=== PATIENT | male | born 1980 | race Caucasian/White ===

== ENCOUNTER 2017-06-19 01:22 | Emergency (ER) | payer SELFPAY ==
[~2017-06-19] VITALS: Ht 175.3 cm; Wt 73.6 kg
--- NOTE | 2017-06-19 01:30 | ED.ADGEN ---
Past History Past Medical History: Other Smoking: Cigarettes Drug Use: Amphetamine, Marijuana Adult General Chief Complaint Chief Complaint " The police woke me up...and said I could go here or [facility]..." " I was just sleeping.." HPI HPI Patient is a 36 year old male who presents with reported mental status changes. Pt. a police referral for mental status changes. Pt denies alcohol use. Pt does admit to doing "smoke." Pt. hx of alcohol abuse and polysubstance abuse in the past. Pt. request a meal. Pt. dose not remember his last meal. Denies immunosuppression. Denies any hx of trauma or recent travel. Pt. only complaints is he needs somewhere to sleep and something to eat. Review of Systems Review of Systems Constitutional: Denies fever or chills [] Eyes: Denies change in visual acuity, redness, or eye pain [] HENT: Denies nasal congestion or sore throat [] Respiratory: Denies cough or shortness of breath [] Cardiovascular: No additional information not addressed in HPI [] GI: Denies abdominal pain, nausea, vomiting, bloody stools or diarrhea [] : Denies dysuria or hematuria [] Musculoskeletal: Denies back pain or joint pain [] Integument: Denies rash or skin lesions [] Neurologic: Denies headache, focal weakness or sensory changes [] Endocrine: Denies polyuria or polydipsia [] All other systems were reviewed and found to be within normal limits, except as documented in this note. Family History Family History Non-contributory Current Medications Current Medications Current Medications Medications (Trade) Dose Ordered Sig/Wale Start Time Stop Time Status Last Admin Dose Admin Folic Acid (FOLIC ACID SYRINGE for ER) 5 mg STK-MED ONCE 06/19/17 02:03 06/19/17 02:04 DC Multivitamins/ Minerals 10 ml/ Folic Acid 1 mg/ Thiamine HCl 100 mg/Lactated Ringer's 1,011.1 ml @ 1,000 mls/ hr 1X ONCE 06/19/17 02:15 06/19/17 03:15 DC 06/19/17 02:16 1,000 MLS/HR Potassium Chloride (KCl Oral Soln) 40 meq 1X ONCE 06/19/17 03:00 06/19/17 03:56 DC 06/19/17 03:04 40 MEQ Thiamine HCl 200 mg STK-MED ONCE 06/19/17 02:03 06/19/17 02:04 DC Allergies Allergies Allergies Coded Allergies Type Severity Reaction Last Updated Verified No Known Drug Allergies 06/19/17 No Physical Exam Physical Exam Constitutional: no acute distress, non-toxic appearance. [] HENT: Normocephalic, atraumatic, bilateral external ears normal, oropharynx moist, no oral exudates, nose normal. [] Eyes: PERRLA, EOMI, conjunctiva normal, no discharge. [] Neck: Normal range of motion, no tenderness, supple, no stridor. [] Cardiovascular:Heart rate regular rhythm, no murmur [] Lungs & Thorax: Bilateral breath sounds equal with scattered wheezes on auscultation []no obvious trauma Abdomen: Bowel sounds normal, soft, no tenderness, no masses, no pulsatile masses. [] Circumcised male Skin: Warm, dry, no erythema, no rash. Body totally covered with tattoo's Back: No tenderness, no CVA tenderness. [] Extremities: No tenderness, no cyanosis, no clubbing, ROM intact, no edema. [] Neurologic: Alert and oriented X 3, normal motor function, normal sensory function, no focal deficits noted. []DTRs +2 patella and brachial. Ripening Room Operator equal. Patient ambulatory without problems. Psychologic: Affect uncooperative, judgement normal, mood normal. [] Current Patient Data Vital Signs Vital Signs Date Time Temp Pulse Resp B/P (MAP) Pulse Ox O2 Delivery O2 Flow Rate FiO2 06/19/17 01:22 97.9 77 16 100 Room Air Lab Results Laboratory Tests Test 06/19/17 01:22 06/19/17 01:40 06/19/17 01:48 Urine Collection Type Unknown Urine Color Yellow Urine Clarity Clear Urine pH 6.5 Urine Specific [place] <=1.005 Urine Protein Neg (NEG-TRACE) Urine Glucose (UA) Neg mg/dL (NEG) Urine Ketones (Stick) Neg mg/dL (NEG) Urine Blood Neg (NEG) Urine Nitrite Neg (NEG) Urine Bilirubin Neg (NEG) Urine Urobilinogen Dipstick 0.2 mg/dL (0.2 mg/dL) Urine Leukocyte Esterase Neg (NEG) Urine RBC 0 /HPF (0-2) Urine WBC Occ /HPF (0-4) Urine Squamous Epithelial Cells Occ /LPF Urine Bacteria 0 /HPF (0-FEW) Urine Opiates Screen Neg (NEG) Urine Methadone Screen Pos (NEG) Urine Barbiturates Neg (NEG) Urine Phencyclidine Screen Neg (NEG) Urine Amphetamine/Methamphetamine Pos (NEG) Urine Benzodiazepines Screen Neg (NEG) Urine Cocaine Screen Neg (NEG) Urine Cannabinoids Screen Pos (NEG) Urine Ethyl Alcohol (NEG) White Blood Count 9.0 x10^3/uL (4.0-11.0) Red Blood Count 4.35 x10^6/uL (4.30-5.70) Hemoglobin 14.1 g/dL (13.0-17.5) Hematocrit 40.4 % (39.0-53.0) Mean Corpuscular Volume 93 fL (79-100) Mean Corpuscular Hemoglobin 32 pg (25-35) Mean Corpuscular Hemoglobin Concent 35 g/dL (31-37) Red Cell Distribution Width 12.6 % (11.5-14.5) Platelet Count 221 x10^3/uL (140-400) Neutrophils (%) (Auto) 67 % (31-73) Lymphocytes (%) (Auto) 21 % (24-48) L Monocytes (%) (Auto) 9 % (0-9) Eosinophils (%) (Auto) 3 % (0-3) Basophils (%) (Auto) 0 % (0-3) Neutrophils # (Auto) 6.0 x10^3uL (1.8-7.7) Lymphocytes # (Auto) 1.9 x10^3/uL (1.0-4.8) Monocytes # (Auto) 0.8 x10^3/uL (0.0-1.1) Eosinophils # (Auto) 0.2 x10^3/uL (0.0-0.7) Basophils # (Auto) 0.0 x10^3/uL (0.0-0.2) POC Hemoglobin 13.3 gm/dL POC Hematocrit 39 % POC Sodium 138 mmol/L (135-145) POC Potassium 3.1 mmol/L (3.5-5.0) L POC Chloride 95 mmol/L (98-110) L POC Total CO2 31 mmol/L (23-32) Anion Gap 16 mmol/L (6-14) H POC Blood Urea Nitrogen 4 mg/dL (8-26) L POC Creatinine 0.9 mg/dL (0.5-1.4) Glucose Level 106 mg/dL (60-99) H POC Ionized Calcium (Simone) 1.11 mmol/L (1.13-1.32) L EKG EKG I interpretation EKG shows a sinus rhythm at 74 bpm. Thyroid prolonged QT interval. No findings acute STEMI of contralateral changes[] Radiology/Procedures Radiology/Procedures My interpretation of chest x-ray shows no acute cardiopulmonary findings. Does have appears to be a metal foreign body right chest-[] Course & Med Decision Making Course & Med Decision Making Pertinent Labs and Imaging studies reviewed. (See chart for details). Pt. only complaint is that he needs a place to sleep and something to eat. Pt discharge home, advised to stop illicit drug use, push fruit juices. Stop smoking. [] Final Impression Final Impression 1. Police referral for mental status change 2.[History of polysubstance abuse-+ Methadone, MJ and Meth. tonight. 3. Hypokalemia Problems: Dragon Disclaimer Dragon Disclaimer This electronic medical record was generated, in whole or in part, using a voice recognition dictation system. LION BELTRAN MD June 19, 2017 01:30
--- NOTE | 2017-06-19 01:42 | EKG ---
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
[2017-06-19] MEDS ORDERED: FOLIC ACID 5 MG/ML SYRINGE for ER IV ONE (02:03)
[2017-06-19] MEDS ORDERED: THIAMINE 200 MG/2 ML VIAL. IV ONE (02:03)
[2017-06-19 02:11] LABS: BASO % 0 % (0-3); EOS # 0.2 x10^3/uL (0.0-0.7); EOS % 3 % (0-3); HEMATOCRIT 40.4 % (39.0-53.0); HEMOGLOBIN 14.1 g/dL (13.0-17.5); LYMPH # 1.9 x10^3/uL (1.0-4.8); LYMPH % 21 % (24-48); MEAN CORPUSCULAR HEMOGLOBIN 32 pg (25-35); MEAN CORPUSCULAR HGB CONC 35 g/dL (31-37); MEAN CORPUSCULAR VOLUME 93 fL (79-100); MONO # 0.8 x10^3/uL (0.0-1.1); MONO % 9 % (0-9); NEUT % 67 % (31-73); PLATELET COUNT 221 x10^3/uL (140-400); RED BLOOD COUNT 4.35 x10^6/uL (4.30-5.70); RED CELL DISTRIBUTION WIDTH 12.6 % (11.5-14.5)
[2017-06-19] MEDS ORDERED: MVI, ADULT NO.4 WITH VIT K 10 ML, FOLIC ACID SYRINGE for ER 1 MG, THIAMINE 100 MG in IV... IV ONE ×4 (02:15)
[2017-06-19 02:22] LABS: BILIRUBIN,URINE NEG (NEG); CLARITY,URINE CLEAR; COLOR,URINE YELLOW; GLUCOSE,URINE NEG (NEG); UROBILINOGEN,URINE 0.2 mg/dL (0.2 mg/dL)
[2017-06-19 02:23] LABS: BACTERIA,URINE 0 /HPF (0-FEW); NITRITE,URINE NEG (NEG); RBC,URINE 0 /HPF (0-2); SQUAMOUS EPITHELIAL CELL,UR OCC /LPF; WBC,URINE OCC /HPF (0-4)
[2017-06-19 02:31] LABS: HEMOGLOBIN ISTAT 13.3 gm/dL; POTASSIUM ISTAT 3.1 mmol/L (3.5-5.0)
[2017-06-19] MEDS ORDERED: POTASSIUM CHLORIDE 20 MEQ/15 ML ORAL LIQUID. PO ONE (03:00)
[2017-06-19 03:59] LABS: AMPHETAMINE/METHAMPHETAMINE POS (NEG); BARBITURATES NEG (NEG); BENZODIAZEPINES NEG (NEG); COCAINE NEG (NEG)
[2017-06-19 04:00] LABS: CANNABINOIDS POS (NEG); METHADONE POS (NEG); OPIATES NEG (NEG); PHENCYCLIDINE NEG (NEG)
[2017-06-19 04:18] VITALS: BP 95/51
--- NOTE | 2017-06-19 09:42 | RAD ---
EXAM: Chest, single view. HISTORY: Dyspnea. COMPARISON: None. FINDINGS: A frontal view of the chest is obtained. There is no infiltrate, effusion or pneumothorax. The heart is normal in size. There is a metallic BB overlying the right mediastinum. IMPRESSION: No acute pulmonary finding. Electronically signed by: Noa Pickering MD (06/19/2017 9:39 AM) [id number]
== END 2017-06-19 04:35 | disposition home or self-care (01) ==
LOC: ER 01:22
DX: R41.82 Altered mental status, unspecified (principal); E87.6 Hypokalemia; F12.10 Cannabis abuse, uncomplicated; F15.10 Other stimulant abuse, uncomplicated; F17.210 Nicotine dependence, cigarettes, uncomplicated; F19.10 Other psychoactive substance abuse, uncomplicated
CPT/HCPCS: 36415; 71045; 80047; 80307; 81001; 85025; 93005; 96365; 99285; J7120; G0479